=== PATIENT | male | born 1990 | race Caucasian/White ===

== ENCOUNTER 2017-11-26 02:55 | Inpatient (IN) | payer OTHER ==
[~2017-11-26] VITALS: Ht 167.6 cm; Wt 88.1 kg
[2017-11-26 03:06] VITALS: Ht 167.6 cm; Wt 88.1 kg
[2017-11-26 06:21] LABS: BASOPHIL % 0.1 % (0-2); PLATELET COUNT 210 x10^3mcL (130-400); RED CELL DISTRIBUTION WIDTH 14.3 % (11.5-14.5)
[2017-11-26 06:43] LABS: CALCIUM 8.3 mg/dL (8.5-10.1); CARBON DIOXIDE 25.8 mmol/L (21-32); CHLORIDE SERUM 103 mmol/L (98-107); CREATININE SERUM 0.8 mg/dL (0.7-1.3); GFR1 > 60 mL/min; GLUCOSE SERUM 108 mg/dL (74-106); POTASSIUM SERUM 4.1 mmol/L (3.5-5.1); SODIUM SERUM 138 mmol/L (136-145)
[2017-11-26 06:48] LABS: ALBUMIN 4.1 g/dL (3.4-5.0); ALKALINE PHOSPHATASE 104 U/L (46-116); ALT/SGPT 192 U/L (16-63); AST/SGOT 59 U/L (15-37); BILIRUBIN TOTAL 0.4 mg/dL (0.20-1.00); LIPASE 85 IU/L (73-393); TOTAL PROTEIN, SERUM 7.6 g/dL (6.4-8.2)
[2017-11-26] MEDS ORDERED: OLANZAPINE5 M2 PO (07:00)
[2017-11-26 08:43] VITALS: BP 115/71
[2017-11-26 11:44] LABS: microscopic required? NO
[2017-11-26 12:01] LABS: UA SPECIFIC GRAVITY 1.015 (1.005-1.035); urine erythrocyte NEGATIVE (NEGATIVE)
[2017-11-26 14:13] LABS: AMPHETAMINE QUAL UR NONE DETECTED (NEG <=1000)
[2017-11-26 14:14] VITALS: BP 109/72
[2017-11-26 14:28] LABS: T3 TOTAL 1.31 ng/mL
[2017-11-26 14:36] LABS: MAGNESIUM 2.1 mg/dL (1.8-2.4); PHOSPHOROUS 3.2 mg/dL (2.5-4.9)
[2017-11-26 14:38] LABS: CHOLESTEROL/HDL RATIO 5.9
[2017-11-26 15:34] LABS: FREE T4 1.29 ng/dL (0.76-1.46); FREE THYROXINE INDEX 4.1 ug/dL (1.4-4.5); T4(THYROXINE) 10.5 ug/dL (4.7-13.3)
[2017-11-26 17:29] VITALS: BP 101/62
[2017-11-26 20:49] VITALS: BP 109/63
[2017-11-27 05:34] VITALS: BP 126/66
[2017-11-27 06:32] LABS: BASOPHIL % 0.3 % (0-2); PLATELET COUNT 203 x10^3mcL (130-400); RED CELL DISTRIBUTION WIDTH 13.8 % (11.5-14.5)
[2017-11-27 07:06] LABS: CALCIUM 8.2 mg/dL (8.5-10.1); CARBON DIOXIDE 26.9 mmol/L (21-32); CHLORIDE SERUM 103 mmol/L (98-107); CREATININE SERUM 0.7 mg/dL (0.7-1.3); GFR1 > 60 mL/min; GLUCOSE SERUM 84 mg/dL (74-106); POTASSIUM SERUM 3.5 mmol/L (3.5-5.1); SODIUM SERUM 141 mmol/L (136-145)
[2017-11-27 09:56] VITALS: BP 100/62
[2017-11-27 14:32] VITALS: BP 101/54
[2017-11-27 18:49] VITALS: BP 112/72
[2017-11-27 21:11] VITALS: BP 116/65
[2017-11-28 05:41] VITALS: BP 98/57
[2017-11-28 06:27] LABS: CARBON DIOXIDE 26.6 mmol/L (21-32); CHLORIDE SERUM 103 mmol/L (98-107); CREATININE SERUM 0.8 mg/dL (0.7-1.3); GFR1 > 60 mL/min; GLUCOSE SERUM 90 mg/dL (74-106); POTASSIUM SERUM 3.5 mmol/L (3.5-5.1); SODIUM SERUM 140 mmol/L (136-145)
[2017-11-28 06:52] LABS: BASOPHIL % 0.5 % (0-2); PLATELET COUNT 219 x10^3mcL (130-400); RED CELL DISTRIBUTION WIDTH 13.9 % (11.5-14.5)
[2017-11-28] MEDS ORDERED: COLACE100 MG PO ×3 (10:14→12:45)
[2017-11-28] MEDS ORDERED: ONDANSETRON4 M3 PO ×3 (10:15→12:45)
[2017-11-28] MEDS ORDERED: NORCO1 TA2 PO ×2 (10:15→10:16)
[2017-11-28 10:16] VITALS: BP 113/76
[2017-11-28] MEDS ORDERED: OLANZAPINE5 M2 PO ×2 (10:16→12:45)
[2017-11-28 17:10] VITALS: BP 111/69
== END 2017-11-28 18:35 | disposition home or self-care (01) | DRG 225 ==
LOC: ED 02:55 → DU 06:44 → MU 06:44 → DU 08:23 → MU 11-28 07:55
PROVIDERS: Emergency Medicine; Family Medicine; Surgery
PROC: 0DTJ4ZZ Resection of Appendix, Percutaneous Endoscopic Approach (ICD-10-PCS; principal; 2017-11-26 11:15)
DX: K35.80 Unspecified acute appendicitis (principal); E83.51 Hypocalcemia; K76.0 Fatty (change of) liver, not elsewhere classified; F20.9 Schizophrenia, unspecified; E78.5 Hyperlipidemia, unspecified
CPT/HCPCS: 83880; 84439; 94150; J0330; J1644; J2175; J2250; J2270; J2405; J2543; J2704; J2710; J3010; J3490; J7030; J7120